=== PATIENT | male | born 1980 | race African-American/Black ===

== ENCOUNTER 2016-10-01 13:19 | Emergency (ER) | payer SELFPAY ==
[~2016-10-01] VITALS: Ht 170.2 cm; Wt 67.0 kg
[2016-10-01 13:21] VITALS: BP 126/75; PULSE 80; RESP 20; TEMP 98.1; O2SAT 100
[2016-10-01] MEDS ORDERED: IBUP800T23 PO ×2 (13:42→13:48)
[2016-10-01] MEDS ORDERED: AMOX500C PO ×3 (13:42→13:49)
--- NOTE | 2016-10-01 13:42 | PD ---
HPI Chief Complaint: Oral / Dental Pain or Problem Time Seen by Provider: 13:40 Travel History International Travel<30 days: No Contact w/Intl Traveler<30days: No Traveled to known affect area: No History of Present Illness HPI 36-year-old male presents to the emergency department with complaint of right lower tooth pain for the last couple weeks. He says the tooth is loose. Denies fever, vomiting. Denies throat pain, difficulty swallowing. Has been taking ibuprofen for symptom management. Pain is aggravated when the top tooth hit the bottom tooth. Has no other medical days. No known allergies. No other modifying factors or associated signs and symptoms. [facility] Social History Tobacco Use: No Allergies-Medications (Allergen,Severity, Reaction): Coded Allergies: No Known Allergies (Unverified , 10/01/16) Reported Meds & Prescriptions Reported Meds & Active Scripts Active Peridex Liq (Chlorhexidine Gluconate (Mouth) Liq) 0.12% Soln 15 Ml SWISH-SPIT BID 10 Days Amoxicillin 500 Mg Cap 500 Mg PO BID 10 Days Ibuprofen 800 Mg Tab 800 Mg PO Q6HR PRN Review of Systems Except as stated in HPI: all other systems reviewed are Neg Physical Exam Narrative GENERAL: Well-nourished, well-developed [place] male patient, in no acute distress; afebrile, nontoxic-appearing SKIN: Warm and dry. HEAD: Atraumatic. Normocephalic. No facial edema, erythema, tenderness on palpation. No lymphadenopathy. EYES: Pupils equal and round. No scleral icterus. No injection or drainage. ENT: Mucosa pink and moist. Airway patent. MOUTH: Mucous membranes moist, no lesions, tongue and gums appear normal. Tooth #30 with tenderness on palpation; the tooth is loose. Surrounding gingiva is without erythema, edema, drainage. No obvious abscess noted. NECK: Trachea midline. No lymphadenopathy. CARDIOVASCULAR: Regular rate. RESPIRATORY: No accessory muscle use. GASTROINTESTINAL: Flat. MUSCULOSKELETAL: No obvious deformities. No clubbing. No cyanosis. No edema. NEUROLOGICAL: Awake and alert. Oriented 3. No obvious cranial nerve deficits. Motor grossly within normal limits. Normal speech. PSYCHIATRIC: Appropriate mood and affect; insight and judgment normal. Data Data Last Documented VS Vital Signs Date Time Temp Pulse Resp B/P Pulse Ox O2 Delivery O2 Flow Rate FiO2 10/01/16 13:21 98.1 80 20 126/75 100 Room Air MDM Medical Decision Making Medical Screen Exam Complete: Yes Emergency Medical Condition: Yes Medical Record Reviewed: Yes Differential Diagnosis Dentalgia, dental abscess, gingivitis Narrative Course 36-year-old male with dentalgia to tooth #30. The tooth is loose also. No facial edema or erythema. Denies fever, vomiting. Emergency dental information sheet provided for follow-up. Amoxicillin, ibuprofen, Peridex mouth rinse prescribed for home. Instructed patient to follow up with dentist. Instructed patient to follow up with primary care provider. Patient verbalizes understanding and agreement with treatment plan. Patient is medically cleared and stable for discharge. Discussed reasons to return to the emergency department. Patient agrees with treatment plan. The patients vital signs are stable and the patient is stable for outpatient follow-up and treatment. Patient discharged home, stable and in no acute distress. Diagnosis Primary Impression: Dentalgia Additional Impression: Loosening of tooth Referrals: Dentist Primary Care Physician Patient Instructions: Dental Abscess (ED), Dental Caries (ED), General Instructions, Toothache (ED) Departure Forms: Tests/Procedures, Work Release Enter return to work date: Oct 02, 2016 Additional Instructions: Complete full course of antibiotics Ibuprofen or Tylenol as directed and as needed to reduce pain and inflammation Warm or cool compresses to the affected area Follow-up with dentist Follow-up with primary care provider Return to emergency department immediately with worsening of symptoms Med/Other Pt SpecificInfo: Prescription(s) given Scripts Chlorhexidine Gluconate (Mouth) Liq (Peridex Liq)0.12% Soln15 Ml SWISH-SPIT BID 10 Days Ref 0 Prov:Cristina Brown 10/01/16 Amoxicillin 500 Mg [id number] Mg PO BID 10 Days Ref 0 Prov:Cristina Brown 10/01/16 Ibuprofen 800 Mg [id number] Mg PO Q6HR PRN (PAIN) #30 TAB Ref 0 Prov:Cristina Brown 10/01/16 Disposition: 01 DISCHARGE HOME Condition: Stable Cristina Brown Oct 01, 2016 13:42
[2016-10-01] MEDS ORDERED: PERI0.126 SWISH-SPIT ×3 (13:46→13:49)
== END 2016-10-01 14:12 | disposition home or self-care (01) ==
LOC: NEPK 13:19
DX: K08.89 Other specified disorders of teeth and supporting structures (principal)
CPT/HCPCS: 99284